=== PATIENT | female | born 1975 | race Caucasian/White ===

== ENCOUNTER 2023-09-20 09:30 | Emergency (ER) | payer OTHER, SELFPAY ==
[2023-09-20 09:33] VITALS: BP 166/98; PULSE 90; TEMP 37; O2SAT 98; BMI 54.8
--- NOTE | 2023-09-20 09:53 | ECG_ITS ---
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
--- NOTE | 2023-09-20 09:53 | ED.PSYCH1 ---
HPI - Psych General Chief Complaint: Psychiatric Symptoms Stated Complaint: SUICIDE IDEATIONS Time Seen by Provider: 09/20/23 09:52 Source: Reports patient Mode of arrival: ambulance Limitations: Reports no limitations History of Present Illness HPI Narrative: Patient presents to the emergency room from her workplace by EMS. Apparently September is a very bad month, she had a traumatic event when she was a young girl. There are workplace issues now that are stressing her additionally. She thought it about issues over the weekend and today at work voiced suicidal ideation. She has had a history of depression in the past but has never really taken treatment or even seeing a mental health professional counselor for that. She has some underlying medical issues but they are not relevant today. She does have history of hypertension and diabetes. She is asymptomatic at this time and has no shortness of breath or chest pain no swelling of her legs no abdominal pain. She did not [place] use of illicit drugs or marijuana. She does not use alcohol on a regular basis. She has not had any recently. She does not use tobacco products. At the time of my interview she was alone. Related Data Home Medications ?Medication ?Instructions ?Recorded ?Confirmed atorvastatin 10 mg tablet 10 mg PO DAILY 09/20/23 09/20/23 lisinopril 5 mg tablet 5 mg PO DAILY 09/20/23 09/20/23 metformin 500 mg tablet 500 mg PO DAILY 09/20/23 09/20/23 Exam Narrative Exam Narrative: Awake alert pleasant maintains good eye contact. She is not tearful, she is not agitated she is fully cooperative. I do not smell alcohol. HEENT shows overall good health mucous membranes are moist pink conjunctiva. Respiratory status is stable pulse oximetry normal and her lungs are clear. Heart sounds are normal with no arrhythmia and I hear no heart murmur. Her trunk torso and extremities are normal with no bruises self-inflicted wounds or other evidence of injury. Neurological examination cognition mentation and insight are all normal. Constitutional Vital Signs, click to edit/add: Last Vital Signs Temp 98.6 F 09/20/23 09:33 Pulse 90 09/20/23 09:33 Resp 20 09/20/23 09:33 BP 166/98 H 09/20/23 09:33 Pulse Ox 98 09/20/23 09:33 O2 Del Method Room Air 09/20/23 09:33 Course Vital Signs Vital signs: Vital Signs Temperature 98.6 F 09/20/23 09:33 Pulse Rate 90 09/20/23 09:33 Respiratory Rate 20 09/20/23 09:33 Blood Pressure 166/98 H 09/20/23 09:33 Pulse Oximetry 98 09/20/23 09:33 Oxygen Delivery Method Room Air 09/20/23 09:33 Temperature 98.6 F 09/20/23 09:33 Pulse Rate 90 09/20/23 09:33 Respiratory Rate 20 09/20/23 09:33 Blood Pressure 166/98 H 09/20/23 09:33 Pulse Oximetry 98 09/20/23 09:33 Oxygen Delivery Method Room Air 09/20/23 09:33 MDM - Psych MDM Narrative Medical decision making narrative: Routine screening medical testing was done. Alcohol and salicylates are negative. Drug screen is negative routine chemistries are normal. She has spoken with mental health counselor and I believe they have agreed to a safety plan and outpatient workup. Lab Data Labs: Lab Results 09/20/23 09/20/23 Range/Units 10:07 10:31 WBC 7.7 (4.0-11.0) 10^3/uL RBC 4.74 (4.20-5.40) 10^6/uL Hgb 12.4 (12.0-16.0) g/dL Hct 38.2 (36.0-48.0) % MCV 80.6 L (81.0-99.0) fL MCH 26.2 L (26.7-34.0) pg MCHC 32.5 (29.9-35.2) g/dL RDW 13.2 (11.0-15.0) % Plt Count 237 (150-450) 10^3/uL MPV 10.5 (9.5-13.5) fL Neut % (Auto) 73.2 (43.0-75.0) % Lymph % (Auto) 17.7 L (20.5-60.0) % Whiteside % (Auto) 7.1 (1.7-12.0) % Eos % (Auto) 1.0 (0.9-7.0) % Baso % (Auto) 0.5 (0.2-2.0) % Neut # (Auto) 5.6 (1.4-6.5) 10^3/uL Lymph # (Auto) 1.4 (1.2-3.8) 10^3/uL Whiteside # (Auto) 0.6 (0.3-0.8) 10^3/uL Eos # (Auto) 0.1 (0.0-0.7) 10^3/uL Baso # (Auto) 0.0 (0.0-0.1) 10^3/uL Abs Immat Gran (auto) 0.04 H (0.00-0.03) 10^3/uL Imm/Tot Granulo (auto) 0.5 (0.0-0.5) % Sodium 143 (136-145) mmol/L Potassium 3.8 (3.5-5.1) mmol/L Chloride 104 (98-107) mmol/L Carbon Dioxide 28.1 (21.0-32.0) mmol/L Anion Gap 14.7 BUN 12.0 (7.0-18.0) mg/dL Creatinine 0.78 (0.55-1.02) mg/dL Est GFR ( Amer) >60 (>=60) Est GFR (Non-Af Amer) >60 (>=60) BUN/Creatinine Ratio 15.4 Glucose 112 H (74-106) mg/dL Calcium 8.8 (8.5-10.1) mg/dL Total Bilirubin 0.4 (0.2-1.0) mg/dL AST 13 L (15-37) U/L ALT 24 (14-59) U/L Alkaline Phosphatase 85 (46-116) U/L Total Protein 6.8 (6.4-8.2) g/dL Albumin 3.4 (3.4-5.0) g/dL Globulin 3.4 g/dL Albumin/Globulin Ratio 1.0 Salicylates <2.8 (<=19.9) mg/dL Urine Opiates Screen Negative (NEGATIVE) Ur Buprenorphine Scrn Negative (NEGATIVE) Ur Oxycodone Screen Negative (NEGATIVE) Urine Methadone Screen Negative (NEGATIVE) Acetaminophen <10.0 L (10.0-30.0) ug/mL Ur Barbiturates Screen Negative (NEGATIVE) U Tricyclic Antidepress Negative (NEGATIVE) Ur Phencyclidine Scrn Negative (NEGATIVE) Ur Amphetamines Screen Negative (NEGATIVE) U Methamphetamines Scrn Negative (NEGATIVE) U Benzodiazepines Scrn Negative (NEGATIVE) Urine Cocaine Screen Negative (NEGATIVE) U Cannabinoids Screen Negative (NEGATIVE) Ethanol Quant <3 mg/dL Discharge Plan Discharge Stand Alone Forms: Portal Instructions Chief Complaint: Psychiatric Symptoms Clinical Impression: Depression Patient Disposition: Home, Self-Care Time of Disposition Decision: 12:28 Prescriptions / Home Meds: No Action atorvastatin 10 mg tablet 10 mg PO DAILY lisinopril 5 mg tablet 5 mg PO DAILY metformin 500 mg tablet 500 mg PO DAILY Print Language: Trinidadian Additional Instructions: Follow-up with mental health professional as advised and agreed upon Referrals: Physician,Non-Staff, [Primary Care Provider] - 1 week
[2023-09-20 10:17] LABS: Basophils Percent Auto 0.5 % (0.2-2.0); Eosinophils Absolute Auto 0.1 10^3/uL (0.0-0.7); Hematocrit 38.2 % (36.0-48.0); Hemoglobin 12.4 g/dL (12.0-16.0); Immature Granulocytes Abs Auto 0.04 10^3/uL (0.00-0.03); Immature Granulocytes Pct Auto 0.5 % (0.0-0.5); Lymphocytes Absolute Auto 1.4 10^3/uL (1.2-3.8); Lymphocytes Percent Auto 17.7 % (20.5-60.0); Mean Corpuscular HGB Conc 32.5 g/dL (29.9-35.2); Mean Corpuscular Hemoglobin 26.2 pg (26.7-34.0); Mean Corpuscular Volume 80.6 fL (81.0-99.0); Mean Platelet Volume 10.5 fL (9.5-13.5); Monocytes Absolute Auto 0.6 10^3/uL (0.3-0.8); Monocytes Percent Auto 7.1 % (1.7-12.0); Neutrophils Absolute Auto 5.6 10^3/uL (1.4-6.5); Neutrophils Percent Auto 73.2 % (43.0-75.0); Platelet Count 237 10^3/uL (150-450); Red Blood Count 4.74 10^6/uL (4.20-5.40); Red Cell Distribution Width 13.2 % (11.0-15.0); White Blood Count 7.7 10^3/uL (4.0-11.0)
[2023-09-20 10:36] LABS: Acetaminophen <10.0 ug/mL (10.0-30.0); Alanine Aminotransferase 24 U/L (14-59); Albumin Level 3.4 g/dL (3.4-5.0); Alkaline Phosphatase 85 U/L (46-116); Anion Gap 14.7; Aspartate Amino Transferase 13 U/L (15-37); BUN Creatinine Ratio 15.4; Bilirubin Total 0.4 mg/dL (0.2-1.0); Calcium 8.8 mg/dL (8.5-10.1); Carbon Dioxide 28.1 mmol/L (21.0-32.0); Chloride 104 mmol/L (98-107); Estimated GFR (African America >60 (>=60); Estimated GFR (Non-African Ame >60 (>=60); Ethanol <3 mg/dL; Globulin 3.4 g/dL; Glucose 112 mg/dL (74-106); Potassium 3.8 mmol/L (3.5-5.1); Salicylate <2.8 mg/dL (<=19.9); Sodium 143 mmol/L (136-145); Total Protein 6.8 g/dL (6.4-8.2)
[2023-09-20 11:03] LABS: Amphetamine Screen Urine NEGATIVE (NEGATIVE); Barbiturates Screen Urine NEGATIVE (NEGATIVE); Benzodiazepines Screen Urine NEGATIVE (NEGATIVE); Buprenorphine Screen Urine NEGATIVE (NEGATIVE); Cannabinoid Screen Urine NEGATIVE (NEGATIVE); Cocaine Screen Urine NEGATIVE (NEGATIVE); Methadone Screen Urine NEGATIVE (NEGATIVE); Methamphetamines Screen Urine NEGATIVE (NEGATIVE); Opiate Screen Urine NEGATIVE (NEGATIVE); Oxycodone Screen Urine NEGATIVE (NEGATIVE); Phencyclidine Screen Urine NEGATIVE (NEGATIVE); Tricyclic Antidepressant Urine NEGATIVE (NEGATIVE)
[2023-09-20 13:30] VITALS: BP 146/88; PULSE 88; O2SAT 98
== END 2023-09-20 13:31 | disposition home or self-care (01) ==
PROVIDERS: Emergency Provider Emergency Medicine Emergency Medical Services
DX: F32.A Depression, unspecified (principal); I10 Essential (primary) hypertension; E11.9 Type 2 diabetes mellitus without complications; Z79.84 Long term (current) use of oral hypoglycemic drugs
CPT/HCPCS: 36415; 80053; 80179; 80307; 80320; 80329; 85025; 93005; 99284

== ENCOUNTER 2024-02-08 13:24 | Observation (INO) | payer OTHER, SELFPAY ==
[2024-02-08] VITALS (8 sets, daily range): BP systolic 93–157; BP diastolic 63–93; PULSE 78–133; TEMP 36.4–39.4; O2SAT 91–96; BMI 53.3; BMI 52.1
--- NOTE | 2024-02-08 13:37 | CT_ITS ---
[address] [address] Patient Name: SOCORRO MONTOYA MRN: [id number] date: 1975 Sex: F Assigned Patient Location: ER Current Patient Location: ER Accession/Order Number: [id number] Exam Date: 02/08/2024 14:14 Report Date: 02/08/2024 14:38 At the request of: PUSHPA ELENA Procedure: CT abdomen pelvis w con EXAMINATION: CT abdomen pelvis w con HISTORY: Vomiting/diarrhea COMPARISON: No relevant comparison available. TECHNIQUE: CT images were created with IV contrast. Axial, Coronal, and Sagittal images. Dose reduction techniques were achieved by using automated exposure control and/or adjustment of mA and/or kV according to patient size and/or use of iterative reconstruction technique. FINDINGS: LUNG BASES: No visible pulmonary or pleural disease. LIVER: No enlargement, atrophy, abnormal density, or significant focal lesion. BILIARY: No visible dilatation or calcification. PANCREAS: No lesion, fluid collection, ductal dilatation, or atrophy. SPLEEN: No enlargement or focal lesion. ADRENALS: No mass or enlargement. KIDNEYS: Normal right. Asymmetric enlargement of the left kidney with moderate perinephric stranding. Mild left hydroureter with no focal obstruction BOWEL/MESENTERY: No visible mass, obstruction, or bowel wall thickening. Normal appendix AORTA/VASCULAR: No aneurysm or dissection. RETROPERITONEUM: No mass or adenopathy. LYMPH NODES: No adenopathy. URINARY BLADDER: No visible focal wall thickening, lesion, or calculus. PELVIC ORGANS: No visible mass. Pelvic organs appropriate for patient age. ABDOMINAL WALL: No mass or hernia. BONES: No bony lesion or fracture. OTHER: Negative. CT/CT abdomen pelvis w con IMPRESSION: Inflammatory changes of the left kidney and ureter, consider pyelonephritis. The differential diagnosis would include sequela of a passed stone Electronically authenticated by: LISA ANDRADE Date: 02/08/2024 14:38
--- NOTE | 2024-02-08 13:37 | XR_ITS ---
The [address] [address] Patient Name: SOCORRO MONTOYA MRN: [id number] date: 1975 Sex: F Assigned Patient Location: ER Current Patient Location: ER Accession/Order Number: [id number] Exam Date: 02/08/2024 14:14 Report Date: 02/08/2024 14:34 At the request of: PUSHPA ELENA Procedure: XR chest 1V EXAMINATION: XR chest 1V HISTORY: Fever COMPARISON: No relevant comparison available. TECHNIQUE: AP portable FINDINGS: LUNGS: No significant pulmonary parenchymal abnormalities. VASCULATURE: No increased pulmonary vasculature. PLEURA: No pneumothorax, effusion, or pleural thickening. Elevated right hemidiaphragm CARDIAC: No cardiomegaly or cardiac silhouette abnormality. MEDIASTINUM: No visible mass or adenopathy. BONES: No fracture or visible bone lesion. OTHER: Negative. XR/XR chest 1V IMPRESSION: No acute cardiopulmonary process Electronically authenticated by: LISA ANDRADE Date: 02/08/2024 14:34
--- NOTE | 2024-02-08 13:42 | ED.GENADUL1 ---
HPI HPI - General Adult General Chief complaint: Nausea/Vomiting/Diarrhea Stated complaint: GENERAL WEAKNESS/ VOMITTING Time Seen by Provider: 02/08/24 13:32 Source: patient Mode of arrival: walk-in Limitations: no limitations History of Present Illness HPI narrative: Patient is a 48-year-old female who presents to the emergency department for 3-day history of vomiting, urinary frequency. She denies flank or back pain. She has no significant abdominal pain at this time although she states she did have left-sided abdominal pain with vomiting earlier. She has had a sore throat which has now resolved. She is noted to be febrile and tachycardic at initial interview. She states when she vomits she does have some mucus but has not had any significant nasal congestion or cough. No sick contacts in the home. No medications taken prior to arrival. She has no concern for . She has not had any diarrhea. Related Data Home Medications ?Medication ?Instructions ?Recorded ?Confirmed atorvastatin 10 mg tablet 10 mg PO DAILY 09/20/23 02/08/24 lisinopril 5 mg tablet 5 mg PO DAILY 09/20/23 02/08/24 metformin 500 mg tablet 500 mg PO DAILY 09/20/23 02/08/24 buspirone 15 mg tablet 15 mg PO BID 02/08/24 02/08/24 Allergies Allergy/AdvReac Type Severity Reaction Status Date / Time No Known Drug Allergies Allergy Verified 02/08/24 13:29 Opioid HPI Opioid Management Most Recent Opioid Data: Last JUN Pain Assessment 02/08/24 15:31 Ur Phencyclidine Scrn Negative (NEGATIVE) 09/20/23 10:31 09/20/23 Review of Systems ROS Constitutional Reports: fever and chills Ears, nose, mouth, and throat Reports: throat pain; Denies: nasal congestion Cardiovascular Denies: chest pain Respiratory Denies: shortness of breath or cough Gastrointestinal Reports: abdominal pain, nausea and vomiting; Denies: diarrhea Genitourinary Reports: painful urination, urinary frequency and urinary urgency Musculoskeletal Denies: back pain or neck pain Neurological Denies: headache, numbness in extremities or weakness in extremities Hematologic/Lymphatic Denies: easy bruising or easy bleeding PFSH PFSH Social History Little interest or pleasure in doing things: not at all Feeling down, depressed, or hopeless: not at all Exam Narrative Exam Narrative: Gen.: Awake, alert, in no distress Head: Normocephalic, atraumatic ENT: Moist mucous membranes Respiratory: No respiratory distress, lungs clear bilaterally Cardio: Regular rate and rhythm, tachycardic Gastrointestinal: Abdomen is soft, nondistended and nontender to palpation Back: No CVA tenderness Extremities: Moves extremities equally, no injuries noted Psych: Normal mood and affect Neuro: No focal neuro deficit Skin: Warm, dry, intact Constitutional Vital Signs, click to edit/add: Last Vital Signs Temp 102.4 F H 02/08/24 15:04 Pulse 109 H 02/08/24 15:04 Resp 18 02/08/24 15:04 BP 139/80 02/08/24 15:04 Pulse Ox 95 02/08/24 15:04 O2 Del Method Room Air 02/08/24 15:04 Course Vital Signs Vital signs: Vital Signs Temperature 103.0 F H 02/08/24 13:29 Pulse Rate 133 H 02/08/24 13:29 Respiratory Rate 18 02/08/24 13:29 Blood Pressure 157/93 H 02/08/24 13:29 Pulse Oximetry 96 02/08/24 13:29 Oxygen Delivery Method Room Air 02/08/24 13:29 Temperature 102.4 F H 02/08/24 15:04 Pulse Rate 109 H 02/08/24 15:04 Respiratory Rate 18 02/08/24 15:04 Blood Pressure 139/80 02/08/24 15:04 Pulse Oximetry 95 02/08/24 15:04 Oxygen Delivery Method Room Air 02/08/24 15:04 Medical Decision Making [facility] Narrative Medical decision making narrative: Patient was initially medicated with IV fluids, Tylenol, Zofran. She had no further episodes of emesis after the Zofran was administered. Her temperature did improve some with the Tylenol. Chest x-ray is unremarkable, full septic workup was ordered. She is negative for COVID, influenza and strep. Blood cultures are pending. Patient with minimal leukocytosis and bandemia, otherwise unremarkable labs and normal lactic acid. She was given additional ibuprofen for fever after her CT resulted showing possible left pyelonephritis versus recently passed kidney stone. Patient with abdomen soft and benign in the ER. She was treated with IV Rocephin for UTI and pyelonephritis. Patient was reevaluated, given her criteria for sepsis and pyelonephritis we will admit for IV fluids and antibiotics. Patient is stable at this time of admission to hospitalist service. SUPERVISED APC VISIT, PHYSICIAN ATTESTATION: Based on the medical record the care appears appropriate. ? Medical Records Medical records reviewed: Yes I reviewed the patient's medical records Lab Data Lab results reviewed: Yes I reviewed the patient's lab results Labs: Lab Results 02/08/24 02/08/24 02/08/24 Range/Units 13:35 13:46 13:56 WBC 11.6 H (4.0-11.0) 10^3/uL RBC 4.96 (4.20-5.40) 10^6/uL Hgb 13.4 (12.0-16.0) g/dL Hct 40.1 (36.0-48.0) % MCV 80.8 L (81.0-99.0) fL MCH 27.0 (26.7-34.0) pg MCHC 33.4 (29.9-35.2) g/dL RDW 12.8 (11.0-15.0) % Plt Count 162 (150-450) 10^3/uL MPV 10.9 (9.5-13.5) fL Seg Neuts % (Manual) 84.0 H (43.0-75.0) Band Neutrophils % 2.0 (0-5) % Lymphocytes % (Manual) 2.0 L (20.5-60.0) % Monocytes % (Manual) 12.0 (1.7-12.0) % Eosinophils % (Manual) 0.0 L (0.9-7.0) % Basophils % (Manual) 0.0 L (0.2-2.0) % Neutrophils # (Manual) 9.74 H (1.4-6.5) 10^3/uL Band Neutrophils # 0.2 (0.0-0.3) 10^3/uL Lymphocytes # (Manual) 0.23 L (1.20-3.80) 10^3/uL Monocytes # (Manual) 1.39 H (0.30-0.80) 10^3/uL Eosinophils # (Manual) 0.00 (0.00-0.70) 10^3/uL Basophils # (Manual) 0.00 (0.00-0.10) 10^3/uL VBG pH 7.502 H (7.330-7.430) VBG pCO2 30.1 L (40.0-52.0) mmHg Sodium 137 (136-145) mmol/L Potassium 3.7 (3.5-5.1) mmol/L Chloride 100 (98-107) mmol/L Carbon Dioxide 23.1 (21.0-32.0) mmol/L Anion Gap 17.6 BUN 9.0 (7.0-18.0) mg/dL Creatinine 1.07 H (0.55-1.02) mg/dL Est GFR ( Amer) >60 (>=60 mL/min/1.73m^2) Est GFR (Non-Af Amer) 55 L (>=60 mL/min/1.73m^2) BUN/Creatinine Ratio 8.4 Glucose 212 H (74-106) mg/dL Lactate 1.9 (0.4-2.0) mmol/L Calcium 9.1 (8.5-10.1) mg/dL Total Bilirubin 1.6 H (0.2-1.0) mg/dL AST 27 (15-37) U/L ALT 30 (14-59) U/L Alkaline Phosphatase 98 (46-116) U/L Total Protein 7.1 (6.4-8.2) g/dL Albumin 3.1 L (3.4-5.0) g/dL Globulin 4.0 g/dL Albumin/Globulin Ratio 0.8 Lipase 16.0 (16.0-77.0) U/L Serum HCG, Qual Negative (NEGATIVE) Urine Color (YELLOW) Urine Clarity (CLEAR) Urine pH (5.0-9.0) Ur Specific [place] (1.005-1.025) Urine Protein (NEG/TRACE) mg/dL Urine Glucose (UA) (NEGATIVE) mg/dL Urine Ketones (NEGATIVE) mg/dL Urine Occult Blood (NEGATIVE) Urine Nitrite (NEGATIVE) Urine Bilirubin (NEGATIVE) Urine Urobilinogen (0.2-1.0) EU/dL Ur Leukocyte Esterase (NEGATIVE) Urine RBC (0-2) #/HPF Urine WBC (NONE SEEN) #/HPF Ur Squamous Epith Cells (NONE/RARE) #/LPF Ur Transition Epith Cell (NONE SEEN) #/LPF Urine Crystals (None Seen) #/HPF Urine Bacteria (NONE SEEN) #/HPF Urine Casts (NONE SEEN) #/LPF Urine Mucus (NONE SEEN) Ur Culture Indicated? Influenza Type A Ag Negative Influenza Type B Ag Negative SARS-CoV-2 Ag (CV2AG) Negative (NEGATIVE) Streptococcus Screen Negative 02/08/24 Range/Units 14:50 WBC (4.0-11.0) 10^3/uL RBC (4.20-5.40) 10^6/uL Hgb (12.0-16.0) g/dL Hct (36.0-48.0) % MCV (81.0-99.0) fL MCH (26.7-34.0) pg MCHC (29.9-35.2) g/dL RDW (11.0-15.0) % Plt Count (150-450) 10^3/uL MPV (9.5-13.5) fL Seg Neuts % (Manual) (43.0-75.0) Band Neutrophils % (0-5) % Lymphocytes % (Manual) (20.5-60.0) % Monocytes % (Manual) (1.7-12.0) % Eosinophils % (Manual) (0.9-7.0) % Basophils % (Manual) (0.2-2.0) % Neutrophils # (Manual) (1.4-6.5) 10^3/uL Band Neutrophils # (0.0-0.3) 10^3/uL Lymphocytes # (Manual) (1.20-3.80) 10^3/uL Monocytes # (Manual) (0.30-0.80) 10^3/uL Eosinophils # (Manual) (0.00-0.70) 10^3/uL Basophils # (Manual) (0.00-0.10) 10^3/uL VBG pH (7.330-7.430) VBG pCO2 (40.0-52.0) mmHg Sodium (136-145) mmol/L Potassium (3.5-5.1) mmol/L Chloride (98-107) mmol/L Carbon Dioxide (21.0-32.0) mmol/L Anion Gap BUN (7.0-18.0) mg/dL Creatinine (0.55-1.02) mg/dL Est GFR ( Amer) (>=60 mL/min/1.73m^2) Est GFR (Non-Af Amer) (>=60 mL/min/1.73m^2) BUN/Creatinine Ratio Glucose (74-106) mg/dL Lactate (0.4-2.0) mmol/L Calcium (8.5-10.1) mg/dL Total Bilirubin (0.2-1.0) mg/dL AST (15-37) U/L ALT (14-59) U/L Alkaline Phosphatase (46-116) U/L Total Protein (6.4-8.2) g/dL Albumin (3.4-5.0) g/dL Globulin g/dL Albumin/Globulin Ratio Lipase (16.0-77.0) U/L Serum HCG, Qual (NEGATIVE) Urine Color Lt. yellow (YELLOW) Urine Clarity Clear (CLEAR) Urine pH 7.0 (5.0-9.0) Ur Specific [place] <=1.005 A (1.005-1.025) Urine Protein 100 A (NEG/TRACE) mg/dL Urine Glucose (UA) Negative (NEGATIVE) mg/dL Urine Ketones Negative (NEGATIVE) mg/dL Urine Occult Blood Large A (NEGATIVE) Urine Nitrite Negative (NEGATIVE) Urine Bilirubin Negative (NEGATIVE) Urine Urobilinogen 1.0 (0.2-1.0) EU/dL Ur Leukocyte Esterase Trace A (NEGATIVE) Urine RBC 5-10 A (0-2) #/HPF Urine WBC 2-5 A (NONE SEEN) #/HPF Ur Squamous Epith Cells Few A (NONE/RARE) #/LPF Ur Transition Epith Cell Rare A (NONE SEEN) #/LPF Urine Crystals None seen (None Seen) #/HPF Urine Bacteria Moderate A (NONE SEEN) #/HPF Urine Casts None seen (NONE SEEN) #/LPF Urine Mucus Trace A (NONE SEEN) Ur Culture Indicated? Yes Influenza Type A Ag Influenza Type B Ag SARS-CoV-2 Ag (CV2AG) (NEGATIVE) Streptococcus Screen Imaging Data CT scan - abdomen: Attestation: I have reviewed the pertinent imaging results. Radiologist's impression: ITS Impressions Abdomen/Pelvis CT 02/08/24 13:37 IMPRESSION: Inflammatory changes of the left kidney and ureter, consider pyelonephritis. The differential diagnosis would include sequela of a passed stone Electronically authenticated by: LISA ANDRADE Date: 02/08/2024 14:38 Chest X-Ray 02/08/24 13:37 IMPRESSION: No acute cardiopulmonary process Electronically authenticated by: LISA ANDRADE Date: 02/08/2024 14:34 Discharge Plan Discharge Chief Complaint: Nausea/Vomiting/Diarrhea Clinical Impression: Pyelonephritis, Sepsis, Fever, Nausea & vomiting Patient Disposition: Admitted as Observation Time of Disposition Decision: 15:54 Prescriptions / Home Meds: No Action atorvastatin 10 mg tablet 10 mg PO DAILY lisinopril 5 mg tablet 5 mg PO DAILY metformin 500 mg tablet 500 mg PO DAILY buspirone 15 mg tablet 15 mg PO BID Print Language: Maltese Referrals: Physician,Non-Staff, [Physician] - 1 week
[2024-02-08] MEDS: 0.9 % SODIUM CHLORIDE 1,000 ML 999 ML IV (13:57)
[2024-02-08] MEDS: ACETAMINOPHEN 500 MG TABLET 1000 MG PO (13:58)
[2024-02-08] MEDS: ONDANSETRON PF 4 MG/2 ML VIAL IV (13:59)
[2024-02-08 14:05] LABS: Hematocrit 40.1 % (36.0-48.0); Hemoglobin 13.4 g/dL (12.0-16.0); Mean Corpuscular HGB Conc 33.4 g/dL (29.9-35.2); Mean Corpuscular Volume 80.8 fL (81.0-99.0); Mean Platelet Volume 10.9 fL (9.5-13.5); Platelet Count 162 10^3/uL (150-450); Red Blood Count 4.96 10^6/uL (4.20-5.40); Red Cell Distribution Width 12.8 % (11.0-15.0); White Blood Count 11.6 10^3/uL (4.0-11.0)
--- NOTE | 2024-02-08 14:11 | PC.NURSE ---
Pt reports frequency of urination for several days along with a fever. Pt states she can not get to the bathroom in time and urinates large amounts. Pt states she is always thirsty. Pt denies being diabetic but states she is prediabetic and gets tested 2 x per year
[2024-02-08 14:13] LABS: PCO2 VBG 30.1 mmHg (40.0-52.0); pH VBG 7.502 (7.330-7.430)
[2024-02-08 14:19] LABS: HCG Qualitative NEGATIVE (NEGATIVE); Internal Control Within Normal Limits
[2024-02-08 14:20] LABS: Influenza Virus A Antigen Negative; Influenza Virus B Antigen Negative; Internal Control Within Normal Limits
[2024-02-08 14:20] LABS: Internal Control Within Normal Limits; Strep A Antigen Screen Negative
[2024-02-08 14:20] LABS: Alanine Aminotransferase 30 U/L (14-59); Albumin Globulin Ratio 0.8; Albumin Level 3.1 g/dL (3.4-5.0); Alkaline Phosphatase 98 U/L (46-116); Anion Gap 17.6; Aspartate Amino Transferase 27 U/L (15-37); BUN Creatinine Ratio 8.4; Bilirubin Total 1.6 mg/dL (0.2-1.0); Calcium 9.1 mg/dL (8.5-10.1); Carbon Dioxide 23.1 mmol/L (21.0-32.0); Chloride 100 mmol/L (98-107); Estimated GFR (African America >60 (>=60 mL/min/1.73m^2); Estimated GFR (Non-African Ame 55 (>=60 mL/min/1.73m^2); Glucose 212 mg/dL (74-106); Potassium 3.7 mmol/L (3.5-5.1); Sodium 137 mmol/L (136-145); Total Protein 7.1 g/dL (6.4-8.2)
[2024-02-08 14:21] LABS: Internal Control Within Normal Limits; SARS-CoV-2 Ag NEGATIVE (NEGATIVE)
[2024-02-08 14:22] LABS: Lactate/Lactic Acid 1.9 mmol/L (0.4-2.0)
[2024-02-08 14:31] LABS: Band Neutrophils Absolute 0.2 10^3/uL (0.0-0.3); Lymphocytes Absolute Manual 0.23 10^3/uL (1.20-3.80); Monocytes Absolute Manual 1.39 10^3/uL (0.30-0.80); Segmented Neut Absolute Manual 9.74 10^3/uL (1.4-6.5)
[2024-02-08 15:01] LABS: Bilirubin Urine NEGATIVE (NEGATIVE); Blood Urine LARGE (NEGATIVE); Clarity Urine CLEAR (CLEAR); Color Urine LT. YELLOW (YELLOW); Glucose Urine UA NEGATIVE (NEGATIVE); Ketones Urine NEGATIVE (NEGATIVE); Leukocyte Esterase Urine TRACE (NEGATIVE); Nitrite Urine NEGATIVE (NEGATIVE); Protein Urine 100 mg/dL (NEG/TRACE); Specific Gravity Urine <=1.005 (1.005-1.025)
[2024-02-08 15:07] LABS: Urine Microscopic Indicated YES
[2024-02-08 15:11] LABS: Bacteria Urine MODERATE #/HPF (NONE SEEN); Cast Seen? NONE SEEN #/LPF (NONE SEEN); Crystals Seen? None Seen #/HPF (None Seen); Mucus Urine TRACE (NONE SEEN); Squamous Epithelial Cell Urine FEW #/LPF (NONE/RARE); Transitional Epi Cells Urine RARE #/LPF (NONE SEEN); Urine Culture Indicated YES
[2024-02-08] MEDS: IBUPROFEN 400 MG TABLET 800 MG PO (15:31)
[2024-02-08] MEDS: CEFTRIAXONE 2,000 MG in 0.9 % SODIUM CHLORIDE 100 ML 200 MG IV (15:32)
--- OUTSIDE RECORDS SUMMARY | 2024-02-08 16:47 | XMS_ITS | CCD ---
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 THROMBOSIS: 2 - 3 C) Active venous thrombosis, pulmonary embolism and prevention of recurrent venous thrombosis: 2 - 3 D) Prevention of arterial thromboembolism including patients with mechanical heart valves: 3 - 4.5 Performed By: #### B TRENT, HEPATIC #### [facility] [address] Ketones Auto test strip (U) [Mass/Vol]Ordered By: Wesley Loza on 01-27-2023 Ketones (U) [Mass/Vol] Negative Negative [facility] - UrinalysisOrder ed By: Wesley Loza on 01-27-2023 Hyaline casts LM Ql (Urine sed) None seen [LPF] 0-8 [facility] Leukocytes [#/volume] correc kathleen for nucleated erythrocytes in Blood by Automated counOrdered By: Wesley Loza on 01-27-2023 WBC corrected for nucl RBC Auto (Bld) [#/Vol] 8.6 10*3/uL 3.8-11.6 [facility] Leukocytes [#/volume] in Blo od by Automated countOrdered By: Wesley Loza on 01-27-2023 WBC (Bld) [#/Vol] 8.6 10*3/uL Normal 3.8-11.6 [facility] Comment on above: Performed By: #### B TRENT, HEPATIC #### [facility] [address] Lymphocytes [#/volume] in Bl ood by Automated countOrdered By: Wesley Loza on 01-27-2023 Lymphocytes (Bld) [#/Vol] 1.9 10*3/uL Normal 1.00-4.8 [facility] Comment on above: Performed By: #### B MP, HEPATIC #### [address] Lymphocytes/100 leukocytes i n Blood by Automated countOrdered By: Wesley Loza on 01-27-2023 Lymphocytes/100 WBC (Bld) 22.3 % Normal . [facility] Comment on above: Performed By: #### B MP, HEPATIC #### [address] MCH [Entitic mass] by Automa kathleen countOrdered By: Wesley Loza on 01-27-2023 MCH (RBC) [Entitic mass] 26.3 pg Normal 24.7-34.3 [facility] Comment on above: Performed By: #### B MP, HEPATIC #### [address] MCHC Auto (RBC) [Mass/Vol]Or dered By: Wesley Loza on 01-27-2023 MCHC (RBC) [Mass/Vol] 33.4 g/dL 32.0-35.0 [facility] MCV [Entitic volume] by Auto mated countOrdered By: Wesley Loza on 01-27-2023 MCV (RBC) [Entitic vol] 78.6 fL Low 80-100 [facility] Comment on above: Performed By: #### B TRENT, HEPATIC #### [address] Monocyte distribution width [Entitic volume] in Blood by AutomatedOrdered By: Wesley Loza on 01-27-2023 Monocyte distribution width Auto (Bld) [Entitic vol] 20.25 % 0.00-20.00 [facility] Comment on above: For adults in ED, MD W > 20.0 may be associated with a higher risk of sepsis during the first 12 hrs of hospital admission Neutrophils [#/volume] in Bl ood by Automated countOrdered By: Wesley Loza on 01-27-2023 Neutrophils (Bld) [#/Vol] 5.7 10*3/uL Normal 1.8-7.7 [facility] Comment on above: Performed By: #### B MP, HEPATIC #### [facility] [address] [place] [address] Nitrite Test strip Ql (U)Ord ered By: Wesley Loza on 01-27-2023 Nitrite Ql (U) Negative Negative [facility] No Panel InformationOrdered By: Wseley Loza on 01-27-2023 Estimated GFR (CKD-EPI) > 60.0 mL/Min [facility] Creatinine Clearance (Chem 160.20 [facility] Nucleated erythrocytes [Pres ence] in Blood by Automated countOrdered By: Wesley Loza on 01-27-2023 Nucleated RBC Auto Ql (Bld) 0.1 /100{WBC} 0-0.5 [facility] Partial Thromboplastin Timeo n 01-27-2023 aPTT Coag (Bld) [Time] 26.3 s Normal 25.1-36.5 [facility] Comment on above: Result Comment: A he matocrit value greater than 55% may lead to inaccurate results in coagulation testing. Patients having hematocrit values >55% require a special collection tube for coagulation studies. Please contact the laboratory at [phone] for redraw instructions. PERFORMED BY: [place] [address] PATHOLOGIST TOPOGRAPHICAL FIELD ASSISTANT MARCUS GE M.D. Performed By: #### B TRENT, HEPATIC #### [facility] [address] [place] [address] [place] Platelet mean volume [Entiti c volume] in Blood by Automated countOrdered By: Wesley Loza on 01-27-2023 Platelet mean volume (Bld) [Entitic vol] 8.7 fL Normal 6.3-10.7 [facility] Comment on above: Performed By: #### B MP, HEPATIC #### [facility] [address] [place] [address] [place] Platelets [#/volume] in Bloo d by Automated countOrdered By: Wesley Loza on 01-27-2023 Platelets (Bld) [#/Vol] 212 10*3/uL Normal 150-450 [facility] Comment on above: Performed By: #### B MP, HEPATIC #### [facility] [address] [place] [address] [facility] Potassium [Moles/volume] in Serum or PlasmaOrdered By: Wesley Loza on 01-27-2023 Potassium [Moles/Vol] See comment 3.5-5.1 [facility] Comment on above: Specimen hemolyzed, redraw requested Protein Auto test strip (U) [Mass/Vol]Ordered By: Wesley Loza on 01-27-2023 Protein (U) [Mass/Vol] Negative Negative [facility] Protein [Mass/volume] in Ser um or PlasmaOrdered By: Wesley Loza on 01-27-2023 Protein [Mass/Vol] 6.8 g/dL Normal 6.4-8.9 [facility] Comment on above: Performed By: #### B MP, HEPATIC #### [facility] [address] [place] [address] [facility] Prothrombin time (PT)Ordered By: Wesley Loza on 01-27-2023 PT Coag (PPP) [Time] 12.4 s Normal 9.0-12.9 [facility] Comment on above: A hematocrit value g reater than 55% may lead to inaccurate results in coagulation testing. Patients having hematocrit values >55% require a special collection tube for coagulation studies. Please contact the laboratory at [phone] for redraw instructions. Result Comment: A he matocrit value greater than 55% may lead to inaccurate results in coagulation testing. Patients having hematocrit values >55% require a special collection tube for coagulation studies. Please contact the laboratory at [phone] for redraw instructions. Performed By: #### B MP, HEPATIC #### [facility] [address] [place] [address] [place] Redraw Potassiumon 3 Redraw Potassium Normal 3.5-5.1 [facility] Comment on above: Order Comment: HOLLI YUEN NOTIFIED. DC Result Comment: Spec imen hemolyzed, redraw requested PERFORMED BY: [facility] [address] [place] [address] PATHOLOGIST TOPOGRAPHICAL FIELD ASSISTANT MARCUS GE M.D. Performed By: #### R RENETTA K #### [address] Serum globulin measurement b y calculation (mass/volume)Ordered By: Wesley Loza on 01-27-2023 Globulin (S) [Mass/Vol] 2.6 g/dL [facility] Comment on above: Performed By: #### B MP, HEPATIC #### [address] Serum or plasma albumin/glob ulin mass ratioOrdered By: Wesley Loza on 01-27-2023 Albumin/Globulin [Mass ratio] 1.6 {ratio} [facility] Comment on above: Performed By: #### B TRENT, HEPATIC #### [address] Serum or plasma anion gap de terminationOrdered By: Wesley Loza on 01-27-2023 Anion gap [Moles/Vol] TNP [facility] Comment on above: Test not performed Serum or plasma non-glucuron idated bilirubin measurement (mass/volume)Ordered By: Wesley Loza on 01-27-2023 Bilirubin.indirect [Mass/Vol] 0.6 mg/dL [facility] Sodium [Moles/volume] in Ser um or PlasmaOrdered By: Wesley Loza on 01-27-2023 Sodium [Moles/Vol] 138 mmol/L Normal 136-145 [facility] Comment on above: Performed By: #### B TRENT, HEPATIC #### [address] Specific gravity Auto test s trip (U) [Rel density]Ordered By: Wesley Loza on 01-27-2023 Specific gravity (U) [Rel density] 1.005 1.001-1.030 [facility] Squamous epithelial cells de tection in urine sediment by light microscopyOrdered By: Wesley Loza on 01-27-2023 Epithelial cells.squamous LM Ql (Urine sed) None seen [HPF] 0-2 [facility] Troponin I High Sensitivityo n 01-27-2023 Troponin I High Sensitivity 2.8 pg/mL Normal 0.0-15.0 [facility] Comment on above: Result Comment: PERF ORMED BY: [place] [address] PATHOLOGIST TOPOGRAPHICAL FIELD ASSISTANT MARCUS GE M.D. Performed By: #### H S TROP #### [facility] [address] [place] [address] Troponin I High Sensitivity 8.9 pg/mL Normal 0.0-15.0 [facility] Comment on above: Result Comment: PERF ORMED BY: [place] [address] PATHOLOGIST TOPOGRAPHICAL FIELD ASSISTANT MARCUS GE M.D. Performed By: #### B MP, HEPATIC #### [place] [id number] [facility] Troponin I.cardiac [Mass/vol ume] in Serum or Plasma by Detection limit <= 0.01 ng/Ordered By: Wesley Loza on 01-27-2023 Troponin I.cardiac DL <= 0.01 ng/mL [Mass/Vol] 2.8 pg/mL 0.0-15.0 [facility] Urea nitrogen [Mass/volume] in Serum or PlasmaOrdered By: Wesley Loza on 01-27-2023 Urea nitrogen [Mass/Vol] 12 mg/dL Normal 7-25 [facility] Comment on above: Performed By: #### B MP, HEPATIC #### [facility] [address] [place] [address] Urine bacteria detection by automated methodOrdered By: Wesley Loza on 01-27-2023 Bacteria Auto Ql (U) None seen None Seen [facility] Urine clarity by refractomet ry automatedOrdered By: Wesley Loza on 01-27-2023 Clarity Refractometry automated (U) Clear Clear [facility] Urine glucose measurement by automated test strip (mass/volume)Ordered By: Wesley Loza on 01-27-2023 Glucose Auto test strip (U) [Mass/Vol] Normal mg/dL Normal [facility] Urine hemoglobin detection b y automated test stripOrdered By: Wesley Loza on 01-27-2023 Hemoglobin Auto test strip Ql (U) Negative Negative [facility] Urine leukocyte esterase det ection by automated test stripOrdered By: Wesley Loza on 01-27-2023 Leukocyte esterase Auto test strip Ql (U) 1+ Negative [facility] Urine pH measurement by auto mated test stripOrdered By: Wesley Loza on 01-27-2023 pH (U) 6.0 [pH] Normal 5.0-9.0 [facility] Comment on above: Order Comment: Name Collection Type:: Clean-Voided Midstream Performed By: #### U HCG, ADDONUAPLUS #### [address] Urobilinogen Auto test strip (U) [Mass/Vol]Ordered By: Wesley Loza on 01-27-2023 Urobilinogen (U) [Mass/Vol] Normal mg/dL Normal [facility] XR chest 1V portableon 01-27 XR chest 1V portable [facility] Main [place] [address] [place] [address] XRay Report Signed Patient: George Montoya MR#: [id number] 84 : 1975 Acct:[id number] Age/Sex: 47 / F ADM Date: 01/27/23 Loc: ER Room: Type: [facility] ER Attending Dr: Copies to: Wesley Loza DO Ordering Provider: Wesley Loza DO Date of Service: 01/27/23 XR/XR chest 1V portable: Chest Pain PORTABLE AP ERECT CHEST 2024 hours CLINICAL HISTORY: Chest pressure COMPARISON: None There is shallow inspiration. The heart is within normal limits. There is no vascular congestion. The lungs, as visualized, are clear. There is no effusion or pneumothorax. The osseous structures are intact. XR/XR chest 1V portable IMPRESSION: NO ACUTE FINDINGS Impression dictated by: Jaja Michaels M.D.01/27/2023 8:41 PM Dictation Location: [place] [address] Transcribed By: [facility] 01/27/232040 Dictated By: Jaja Michaels MD 01/27/232040 Signed By: 01/27/232040 [address] [facility] Cholesterol [Mass/volume] in Serum or PlasmaOrdered By: Irene Mccarty on 06-06-2022 Cholesterol [Mass/Vol] 155 mg/dL 140-200 [facility] Comment on above: Chol less than 200 m g/dl low riskChol 201-239 mg/dl borderline riskChol 240 mg/dl and greater high risk Cholesterol in LDL Calc [Mas s/Vol]Ordered By: Irene Mccarty on 06-06-2022 Cholesterol in LDL [Mass/Vol] 91 mg/dL 0-100 [facility] Comment on above: LDL ATP III CLASSIFI CATIONLDL less than 100 mg/dL OptimalLDL 100-129 mg/dL Near or above optimalLDL 130-159 mg/dL Borderline highLDL 160-189 mg/dL HighLDL greater than 189 mg/dL Very high Cholesterol in VLDL Calc [Ma ss/Vol]Ordered By: Irene Mccarty on 06-06-2022 Cholesterol in VLDL [Mass/Vol] 13 mg/dL [facility] Serum or plasma high density lipoprotein (HDL) cholesterol measurementOrdered By: Irene Mccarty on 06-06-2022 Cholesterol in HDL [Mass/Vol] 50 mg/dL 35-85 [facility] Comment on above: HDL CHOL ATP-III CLA SSIFICATION Cardiovascular RiskHDL > or equal to 60 mg/dL LOWHDL < 40 mg/dL HIGH Serum or plasma total choles terol/high density lipoprotein (HDL) cholesterol mass ratOrdered By: Irene Mccarty on 06-06-2022 Cholesterol.total/Chol esterol in HDL [Mass ratio] 3.1 {ratio} <5.0 [facility] Triglyceride [Mass/volume] i n Serum or PlasmaOrdered By: Irene Mccarty on 06-06-2022 Triglyceride [Mass/Vol] 68 mg/dL 35-149 [facility] Comment on above: TRIG ATP III CLASSIF ICATIONTRIG less than 150 mg/dL NormalTRIG 150-199 mg/dL Borderline highTRIG 200-500 mg/dL High TRIG greater than 500 mg/dL Very highStandard traceable to the Center for Disease Conrtrol and Prevention (CDC) test method. XR HIP RT 2 3V W PELVISon XR HIP RT 2 3V W PELVIS EXAMINATION: XR HIP RT 2 3V W PELVIS HISTORY: Traumatic injury COMPARISON: No relevant comparison available. FINDINGS: BOWEL GAS PATTERN: No abnormal dilation or deviation. CALCIFICATIONS: None significant. OTHER: No acute fracture or dislocation. Mild bilateral hip osteoarthropathy right greater than left with marginal osteophyte formation. Mild degenerative spondylosis of the spine IMPRESSION: No acute fracture Electronically authenticated by: LISA ANDRADE Date: 2020-03-20 07:15 Normal [facility] XR KNEE RT 4V or >on 020 XR KNEE RT 4V or > PROCEDURE: XR KNEE R T 4V or >, XR TIB_FIB RT 2V COMPARISON: None. HISTORY: Traumatic injury FINDINGS: BONES:No acute fracture or dislocation of the knee or lower leg. Moderate knee tricompartmental osteoarthropathy with marginal osteophyte relation. Moderate narrowing of the medial knee joint space. Moderate enthesopathic spurring of the calcaneus. Prominent os trigonum. SOFT TISSUES:Negative. No visible soft tissue swelling. EFFUSION:None visible. OTHER: Negative. IMPRESSION: Degenerative changes No acute fracture Electronically authenticated by: LISA ANDRADE Date: 2020-03-20 07:18 Normal [facility] Vital Signs Date Time Vital Sign Value Performing Clinician Facility 03-09-2023 18:45-0500 Body temperature 98.24 [degF] [facility] 03-09-2023 18:45-0500 Diastolic blood pressure 87 mm[Hg] [facility] 03-09-2023 18:45-0500 Heart rate 105 /min [facility] 03-09-2023 18:45-0500 Respiratory rate 18 /min [facility] 03-09-2023 18:45-0500 SaO2% (BldA) [Mass fraction] 100 % [facility] 03-09-2023 18:45-0500 Systolic blood pressure 136 mm[Hg] Davekeith Mcnair [facility] 01-27-2023 23:00-0400 Diastolic blood pressure 74 mm[Hg] DO Irene Gomes-Snyder Work Phone: [facility] 01-27-2023 23:00-0400 Heart rate 71 /min DO Irene Gomes-Snyder Work Phone: [facility] 01-27-2023 23:00-0400 Respiratory rate 18 /min DO Irene Gomes-Snyder Work Phone: [facility] 01-27-2023 23:00-0400 SaO2% (BldA) [Mass fraction] 97 % DO Irene Gomes-Snyder Work Phone: [facility] 01-27-2023 23:00-0400 Systolic blood pressure 132 mm[Hg] DO Riene Gomes-Snyder Work Phone: [facility] 01-27-2023 16:50-0400 Body height 170.18 cm DO Irene Gomes-Snyder Work Phone: [facility] 01-27-2023 16:50-0400 Body temperature 97.7 [degF] DO Irene Gomes-Snyder Work Phone: [facility] 01-27-2023 16:50-0400 Body weight 152 kg DO Irene Gomes-Snyder Work Phone: [facility] Encounters Encounter Date Encounter Type Care Provider Facility Start: 01-12-2024 ambulatory Irene Gomes-Snyder Fac ility:[facility] Start: 09-30-2023 End: 09-30-2023 ambulatory IRENE D GOMES-EMERY Not Available Start: 08-28-2023 End: 08-28-2023 Patient encounter procedure DO Irene Gomes-Snyder Work Phone: [facility] [place] Work Phone: Start: 08-28-2023 End: 08-28-2023 ambulatory DO Irene Gomes-Snyder Work Phone: [facility] Work Phone: Start: 08-24-2023 End: 08-24-2023 ambulatory IRENE D GOMES-EMERY Not Available Start: 04-20-2023 End: 04-20-2023 ambulatory IRENE D GOMES-EMERY Not Available Start: 03-09-2023 End: 03-10-2023 Emergency department patient visit Dave Mcnair Facility:[facility] Start: 03-09-2023 End: 03-09-2023 Emergency department patient visit Dave KingFelecia Mcnair [facility] Start: 01-27-2023 End: 01-27-2023 Emergency department patient visit DO Irene Gomes-Snyder Work Phone: [facility] Work Phone: Start: 06-06-2022 End: 06-06-2022 ambulatory DO Irene Gomes-Snyder Work Phone: [facility] Work Phone: Start: 06-06-2022 End: 06-06-2022 Patient encounter procedure DO Irene Gomes-Snyder Work Phone: [facility] [place] Work Phone: Start: 03-20-2020 End: 03-20-2020 Patient encounter procedure RADHA MARKER Facility: Procedures Date Procedure Procedure Detail Performing Clinician Start: 01-27-2023 [place] chest X-ray DO Sa ndra Gomes-Snyder Work Phone: section Dave Blancoraul er Plan of Treatment Date Care Activity Detail Author Patient Education Chest Pain (DC) [facility] Work Phone: Patient referral [facility] Work Phone: Payers Date Payer Category Payer Self-pay [id number] 2022 Unknown [id number] 1975 Unknown [id number] 1975 Unknown [id number] 1975 Unknown [id number] 1975 Unknown [id number] 1975 Unknown [id number] 259 1959 Unknown 1959 Unknown [id number] Unknown Mac BC/BS [id number] Unknown [id number] 31 Unknown [id number] 31 Unknown [id number] 31 Worker's Compensation Occupational Health Link [id number] Social History Date Type Detail Facility Start: 01-08-2019 End: 01-27-2023 Tobacco smoking status NHIS Never smoked tobacco (finding) [facility] Start: 1975 Sex Assigned At Female F [facility] Tobacco [facility] Comment on above: denies Tobacco smoking status No Smokin g Status Entered [facility] Sex Assigned At Female [facility] Functional Status Date Assessment Result Facility 03-09-2023 Functional Status N/A [facility] Discharge instructions 03-10-2023 Note Date & Type Note Facility 03-10-2023 Hospital Discharg e instructions Patient Education 03/09/2023 22:22:23 Contusion Contusion A contusion is a deep bruise. Contusions are the result of a blunt injury to tissues and muscle fibers under the skin. The injury causes bleeding under the skin. The skin overlying the contusion may turn blue, purple, or yellow. Minor injuries will give you a painless contusion, but more severe injuries cause contusions that may stay painful and swollen for a few weeks. Follow these instructions at home: Pay attention to any changes in your symptoms. Let your health care provider know about them. Take these actions to relieve your pain. Managing pain, stiffness, and swelling Use resting, icing, applying pressure (compression), and raising (elevating) the injured area. This is often called the RICE strategy. ?Rest the injured area. Return to your normal activities as told by your health care provider. Ask your health care provider what activities are safe for you. ?If directed, put ice on the injured area: ?Put ice in a plastic bag. ?Place a towel between your skin and the bag. ?Leave the ice on for 20 minutes, 2 3 times per day. ?If directed, apply light compression to the injured area using an elastic bandage. Make sure the bandage is not wrapped too tightly. Remove and reapply the bandage as directed by your health care provider. ?If possible, raise (elevate) the injured area above the level of your heart while you are sitting or lying down. General instructions Take nzaw-bpu-ccipkna and prescription medicines only as told by your health care provider. Keep all follow-up visits as told by your health care provider. This is important. Contact a health care provider if: Your symptoms do not improve after several days of treatment. Your symptoms get worse. You have difficulty moving the injured area. Get help right away if: You have severe pain. You have numbness in a hand or foot. Your hand or foot turns pale or cold. Summary A contusion is a deep bruise. Contusions are the result of a blunt injury to tissues and muscle fibers under the skin. It is treated with rest, ice, compression, and elevation. You may be given [id number] medicines for pain. Contact a health care provider if your symptoms do not improve, or get worse. Get help right away if you have severe pain, have numbness, or the area turns pale or cold. This information is not intended to replace advice given to you by your health care provider. Make sure you discuss any questions you have with your health care provider. Document Revised: 02/17/2022 Document Reviewed: 01/29/2022 [employer] Patient Education 2022 [employer]. Follow Up Care 03/09/2023 18:41:37 With:IRENE MCCARTY Address: [address] [place] [address], [address] [place] [address]- Business (1) When:Within 3 Day(s) [facility] Evaluation + Plan note Note Date & Type Note Facility Evaluation + Plan note No data available for this section [facility] Evaluation note Note Date & Type Note Facility Evaluation note No assessment information availa [facility] Work Phone: Hospital Discharge instructions Note Date & Type Note Facility Hospital Discharge instructions Additional Instructions Follow-up with your primary care doctor Return to ED if develop worsening symptoms or concerns [facility] Work Phone: Progress note Note Date & Type Note Facility Progress note No data available for this section [facility] Summary Purpose Family History No Family History Records Found Relationship Condition Age at Onset Recorded Date/T everardo father Diabetes mellitus Unknown Hypertension Unknown Not Specified Unknown Diabetes mellitus Unknown Advance Directives No Advanced Directives Records Found Advance Directive Response Recorded Date/ Time Advance Directives No July 08 4:10pm Advance Directive Response Recorded Date/ Time Advance Directives No July 08 018 5:10pm Chief Complaint and Reason for Visit Chief Complaint E78.2 Chief Complaint chest discomfort hot flash Chief Complaint E11.9 Additional Source Comments INFORMATION SOURCE (unrecogn ized section and content) DATE CREATED AUTHOR 04/29/2020 [facility] DATE CREATED AUTHOR AUTHOR'S ORGANIZ ATION 03/11/[address] [facility] DATE CREATED AUTHOR AUTHOR'S ORGANIZ ATION 10/04/2023 [facility] EPIC DATE CREATED AUTHOR AUTHOR'S ORGANIZ ATION 01/22/2024 [facility] Care Teams (unrecognized sec tion and content) Team Status: Inactive Member Role Status Dates Irene Mccarty , DO Primary Care Provider, Attend ing Provider Active Team Status: Active Member Role Status Dates Irene Mccarty , DO Primary Care Provider Active Team Status: Inactive Member Role Status Dates Irene Mccarty , DO Primary Care Provider Active Wesley Loza , DO Emergency Provider Active Team Status: Inactive Member Role Status Dates Irene Mccarty , DO Primary Care Pr ovider, Attending Provider Active Start: August 28, 2023 End: August 28, 2023 Goals (unrecognized section and content) Goals may be documented in a n alternate sectionGoals may be documented in an alternate section No data available for this sectionGoals may be documented in an alternate section FOR RECORDS PERTAINING TO PATIENTS WHO ARE OR HAVE BEEN ENROLLED IN A CHEMICAL DEPENDENCY/SUBSTANCEABUSE PROGRAM, SOME INFORMATION MAY BE OMITTED. This clinical summary was aggregated from multiple sources. Caution should be exercised in using it in the provision of clinical care. This summary normalizes information from multiple sources, and as a consequence, information in this document may materially change the coding, format and clinical context of patient data. In addition, data may be omitted in some cases. CLINICAL DECISIONS SHOULD BE BASED ON THE PRIMARY CLINICAL RECORDS. [employer] provides no warranty or guarantee of the accuracy or completeness of information in this document.
--- NOTE | 2024-02-08 17:54 | PM.HP ---
HPI H&P: HPI History of Present Illness Chief complaint: Nausea/Vomiting, Pyelonephritis, Sepsis Narrative: 48 y o female presented to ED for nausea, vomiting and inability to eat x 3 days. Patient also reports urinary urgency/dysuria and increased urinary frequency. She reports left sided back for 1-2 days but denies any abdominal pain. Denies diarrhea. Denies blood in stool. Patient was febrile in ED with associated diaphoresis. Work up in ED revealed acute left sided pyelonephritis and possibility of passed ureteral stone on left side. Patient denies prior hx of renal stones or UTI. After initial treatment with anti emetics, IVF and IV abx, patient was still feeling quite nauseous and unwell. She will be admitted for observation for left pyelonephritis, poorly controlled nausea/vomiting and inability to tolerate PO diet. Opioid HPI Opioid Management Most Recent Pain and Opioid Data: Last Pain Assessment 02/08/24 16:51 Last MAR Pain Assessment 02/08/24 15:31 Last ORT Total Score 1 02/08/24 16:51 02/08/24 Last ORT Risk Category Low Risk 02/08/24 16:51 02/08/24 Ur Phencyclidine Scrn Negative (NEGATIVE) 09/20/23 10:31 09/20/23 Review of Systems ROS Status of ROS 10 or more systems reviewed and unremarkable except as noted in history and below [facility] Medical History (Updated 02/08/24 @ 17:55 by Shaikh Rocky MD) Anxiety ?F41.9 - Anxiety disorder, unspecified (ICD-10) Hyperlipidemia ?E78.5 - Hyperlipidemia, unspecified (ICD-10) Hypertension ?I10 - Essential (primary) hypertension (ICD-10) Diabetes ?E11.9 - Type 2 diabetes mellitus without complications (ICD-10) Surgical History (Updated 02/08/24 @ 16:47 by Manisha Peterson) delivery delivered ?O82 - Encounter for delivery without indication (ICD-10) Family History (Updated 02/08/24 @ 16:49 by Manisha Peterson) Father Family history of diabetes mellitus Family history of hypertension Family history of myocardial infarction Mother Family history of diabetes mellitus Brother Family history of hypertension Social History (Updated 02/08/24 @ 16:50 by Manisha Peterson) Within the past year, how often did you have a drink containing alcohol: never Score interpretation: A score less than 3 is consistent with normal alcohol consumption. Smoking status: Never smoker Non-prescribed substance use: denies use Previous occupational history: [employer] Highest level of school completed/degree received: some college, no degree Little interest or pleasure in doing things: not at all Feeling down, depressed, or hopeless: not at all Feel stressed/tense/nervous/anxious/difficulty sleeping: not at all Meds Home Medications and Allergies Home Medications ?Medication ?Instructions ?Recorded ?Confirmed ?Type atorvastatin 10 mg tablet 10 mg PO DAILY 09/20/23 02/08/24 History lisinopril 5 mg tablet 5 mg PO DAILY 09/20/23 02/08/24 History metformin 500 mg tablet 500 mg PO DAILY 09/20/23 02/08/24 History buspirone 15 mg tablet 15 mg PO BID 02/08/24 02/08/24 History Allergies Allergy/AdvReac Type Severity Reaction Status Date / Time No Known Drug Allergies Allergy Verified 02/08/24 13:29 Exam Constitutional Vital Signs, click to edit/add: Last Vital Signs Temp 97.8 F 02/08/24 16:51 Pulse 98 H 02/08/24 16:51 Resp 16 02/08/24 16:51 BP 119/75 02/08/24 16:51 Pulse Ox 93 L 02/08/24 16:51 O2 Del Method Room Air 02/08/24 16:51 Documenting provider has reviewed patient's vital signs: yes Common normals: oriented x3 General appearance: cooperative, ill appearing and diaphoretic Nutritional appearance: obese Respiratory Common normals: normal respiratory effort and clear to auscultation bilaterally Effort & inspection: able to speak in complete sentences Auscultation: clear to auscultation bilaterally Cardio Common normals: regular rate, S1 normal heart sound and S2 normal heart sound Rate: regular rate Heart sounds: S1 normal and S2 normal GI Common normals: Normal to inspection, nondistended, normoactive bowel sounds present, soft to palpation, non-tender and no hepatosplenomegaly Palpation: soft and no hepatosplenomegaly Back & Pelvis General back: CVA tenderness CVA tenderness: left Extremity Common normals: no clubbing, cyanosis or edema Neuro Common normals: oriented x3, moves all extremities and no focal motor deficits Psych Common normals: mental status grossly normal, denies hallucinations, denies homicidal ideation and denies suicidal ideation Results Labs Labs: Short CBC 02/08/24 Range/Units 13:46 WBC 11.6 H (4.0-11.0) 10^3/uL Hgb 13.4 (12.0-16.0) g/dL Hct 40.1 (36.0-48.0) % Plt Count 162 (150-450) 10^3/uL BMP 02/08/24 13:46 Sodium 137 Potassium 3.7 Chloride 100 Carbon Dioxide 23.1 BUN 9.0 Creatinine 1.07 H Glucose 212 H Calcium 9.1 Liver Function 02/08/24 Range/Units 13:46 Total Bilirubin 1.6 H (0.2-1.0) mg/dL AST 27 (15-37) U/L ALT 30 (14-59) U/L Alkaline Phosphatase 98 (46-116) U/L Albumin 3.1 L (3.4-5.0) g/dL Urine 02/08/24 Range/Units 14:50 Urine Color Lt. yellow (YELLOW) Urine Clarity Clear (CLEAR) Urine pH 7.0 (5.0-9.0) Ur Specific [place] <=1.005 A (1.005-1.025) Urine Protein 100 A (NEG/TRACE) mg/dL Urine Glucose (UA) Negative (NEGATIVE) mg/dL ABG ABG results: 02/08/24 13:46 VBG pH 7.502 H VBG pCO2 30.1 L Assessment and Plan Assessment and Plan (1) Pyelonephritis: Assessment and Plan: Started on IV rocephin. F./u urine and blood cx. C/w IVF. (2) Nausea & vomiting: Assessment and Plan: Zofran as needed. IVF for dehydration. Advance diet as tolerated. Qualifiers: Vomiting type: unspecified Qualified Code(s): R11.2 - Nausea with vomiting, unspecified (3) Hypertension: Assessment and Plan: BP stable. C/w home medications. Qualifiers: Hypertension type: primary hypertension Qualified Code(s): I10 - Essential (primary) hypertension (4) Diabetes: Assessment and Plan: Hold metformin. ssi while inpatient. Qualifiers: Diabetes mellitus type: type 2 Diabetes mellitus retirement insulin use: without superintendent terminal use Diabetes mellitus complication status: without complication Qualified Code(s): E11.9 - Type 2 diabetes mellitus without complications (5) Depression: Assessment and Plan: Stable mood. Denies si/hi. c.w buspirone Qualifiers: Depression Type: major depressive disorder Major depression recurrence: recurrent Active/Remission status: in full remission Qualified Code(s): F33.42 - Major depressive disorder, recurrent, in full remission (6) Hyperlipidemia: Assessment and Plan: c/w lipitor Qualifiers: Hyperlipidemia type: unspecified Qualified Code(s): E78.5 - Hyperlipidemia, unspecified Plan C.w IVF, IV rocephin. C/w Supportive care, advance diet as tolerated.
[2024-02-08] MEDS: LACTATED RINGER'S SOLUTION 1,000 ML 125 ML IV (18:06)
[2024-02-08] MEDS: ENOXAPARIN SODIUM 60 MG/0.6 ML SYRINGE SUBQ (21:12)
[2024-02-08] MEDS: ATORVASTATIN CALCIUM 10 MG TABLET PO (21:13)
[2024-02-08] MEDS: BUSPIRONE HCL 15 MG TABLET PO (21:13)
[2024-02-08] MEDS: INSULIN ASPART 300 UNIT/3 ML PEN SUBQ (21:14)
[2024-02-08 21:19] LABS: Glucometer 158 mg/dL (74-106)
[2024-02-09] MEDS: ACETAMINOPHEN 325 MG TABLET 650 MG PO ×2 (01:29→06:15)
[2024-02-09] MEDS: LACTATED RINGER'S SOLUTION 1,000 ML 125 ML IV (01:30)
[2024-02-09 01:31] VITALS: TEMP 37.9
[2024-02-09 03:32] VITALS: BP 115/75; PULSE 99; TEMP 36.9; O2SAT 92
[2024-02-09 06:16] VITALS: TEMP 37.4
[2024-02-09 06:21] LABS: Basophils Percent Auto 0.2 % (0.2-2.0); Eosinophils Percent Auto 0.4 % (0.9-7.0); Hematocrit 38.5 % (36.0-48.0); Hemoglobin 12.6 g/dL (12.0-16.0); Immature Granulocytes Abs Auto 0.04 10^3/uL (0.00-0.03); Immature Granulocytes Pct Auto 0.5 % (0.0-0.5); Lymphocytes Absolute Auto 0.6 10^3/uL (1.2-3.8); Mean Corpuscular HGB Conc 32.7 g/dL (29.9-35.2); Mean Corpuscular Volume 82.6 fL (81.0-99.0); Mean Platelet Volume 11.2 fL (9.5-13.5); Monocytes Absolute Auto 0.9 10^3/uL (0.3-0.8); Monocytes Percent Auto 10.7 % (1.7-12.0); Neutrophils Percent Auto 81.2 % (43.0-75.0); Platelet Count 127 10^3/uL (150-450); Red Blood Count 4.66 10^6/uL (4.20-5.40); Red Cell Distribution Width 13.2 % (11.0-15.0); White Blood Count 8.6 10^3/uL (4.0-11.0)
[2024-02-09 07:05] LABS: Alanine Aminotransferase 30 U/L (14-59); Albumin Globulin Ratio 0.6; Albumin Level 2.5 g/dL (3.4-5.0); Alkaline Phosphatase 96 U/L (46-116); Anion Gap 13.7; Aspartate Amino Transferase 35 U/L (15-37); BUN Creatinine Ratio 8.6; Bilirubin Total 1.1 mg/dL (0.2-1.0); Carbon Dioxide 24.7 mmol/L (21.0-32.0); Chloride 103 mmol/L (98-107); Estimated GFR (African America >60 (>=60 mL/min/1.73m^2); Estimated GFR (Non-African Ame 56 (>=60 mL/min/1.73m^2); Glucose 163 mg/dL (74-106); Potassium 3.4 mmol/L (3.5-5.1); Sodium 138 mmol/L (136-145); Total Protein 6.5 g/dL (6.4-8.2)
[2024-02-09 07:27] VITALS: BP 114/78; PULSE 118; TEMP 36.3; O2SAT 95
--- NOTE | 2024-02-09 07:29 | ECG_ITS ---
[facility] Test Date: 2024-02-09 Pat Name: SOCORRO MONTOYA Department: Room: [facility] Gender: Female Cork Wirer: : 1975 Requested By: Order Number: [id number] Reading MD: JESSICA MILLER Measurements Intervals [place] Rate: 116 P: 33 ME: 143 QRS: 12 QRSD: 106 T: 8 QT: 310 QTc: 432 Interpretive Statements SINUS TACHYCARDIA LOW QRS VOLTAGE IN PRECORDIAL LEADS [QRS DEFLECTION < 1.0 mV IN CHEST LEADS] ABNORMAL RHYTHM ECG Compared to ECG 09/20/2023 09:54:56 Low QRS voltage now present Sinus rhythm no longer present Electronically Signed On 02-09-2024 18:00:34 EDT by JESSICA MILLER
[2024-02-09 07:42] LABS: Glucometer 215 mg/dL (74-106)
[2024-02-09] MEDS: BUSPIRONE HCL 15 MG TABLET PO (08:17)
[2024-02-09] MEDS: INSULIN ASPART 300 UNIT/3 ML PEN SUBQ (08:17)
[2024-02-09] MEDS: ENOXAPARIN SODIUM 60 MG/0.6 ML SYRINGE SUBQ (08:17)
[2024-02-09] MEDS: LISINOPRIL 5 MG TABLET PO (08:23)
--- NOTE | 2024-02-09 09:50 | P.DS_ITS ---
DS: Providers Provider Date of admission: 02/08/24 16:37 Primary care physician: KRZYSZTOF ALBRIGHT Admitting clinician: Shaikh Rocky Attending physician on admission: Shaikh Rocky Attending physician on discharge: Shaikh Rocky Discharging clinician: Shaikh Rocky Anticipated date of discharge: 02/09/24 DS: Diagnosis Discharge Diagnosis (1) Pyelonephritis: (2) Nausea & vomiting: Qualifiers: Vomiting type: unspecified Qualified Code(s): R11.2 - Nausea with vomiting, unspecified (3) Hypertension: Qualifiers: Hypertension type: primary hypertension Qualified Code(s): I10 - Essential (primary) hypertension (4) Diabetes: Qualifiers: Diabetes mellitus type: type 2 Diabetes mellitus long-term insulin use: without long-term use Diabetes mellitus complication status: without complication Qualified Code(s): E11.9 - Type 2 diabetes mellitus without complications (5) Depression: Qualifiers: Active/Remission status: in full remission Depression Type: major depressive disorder Major depression recurrence: recurrent Qualified Code(s): F33.42 - Major depressive disorder, recurrent, in full remission (6) Hyperlipidemia: Qualifiers: Hyperlipidemia type: unspecified Qualified Code(s): E78.5 - Hyperli pidemia, unspecified DS: Summary Hospital Course Hospital Course: 48 y o female presented to ED for nausea, vomiting and inability to eat x 3 days. Patient also reported urinary urgency/dysuria and increased urinary frequency. She also had left sided back for 1-2 days but denied any abdominal pain. Patient was febrile in ED with associated diaphoresis. Work up in ED revealed acute left sided pyelonephritis and possibility of passed ureteral stone on left side. Patient denies prior hx of renal stones or UTI. After initial treatment with anti emetics, IVF and IV abx, patient was still feeling quite nauseous and unwell. She was admitted admitted for observation for left pyelonephritis, poorly controlled nausea/vomiting and inability to tolerate PO diet. Patient was treated with IVF, IV rocephin and anti emetics as needed. She improved clinically over the course of admission. Patient is now tolerating PO diet. She is stil complaining of nausea and has decreased PO intake. Otherwise, feels well compared to when she came to ED. She is medically stable for discharge on oral abx. She will also be sent home with oral zofran as neeed. Patient educated on worrisome signs and symptoms including intractable nausea/vomiting or fever, that should prompt her to seek care and return to ED. Status at Discharge Functional status at discharge: independent ambulation Overall status at discharge: patient is back to baseline Time Spent with Patient Time attestation: Total time spent providing and/or coordinating discharge services: Time spent: greater than 30 minutes Exam Constitutional Vital Signs, click to edit/add: Last Vital Signs Temp 97.4 F L 02/09/24 07:27 Pulse 118 H 02/09/24 07:27 Resp 18 02/09/24 07:27 BP 114/78 02/09/24 07:27 Pulse Ox 95 02/09/24 07:27 O2 Del Method Room Air 02/09/24 07:27 Documenting provider has reviewed patient's vital signs: yes Common normals: oriented x3 General appearance: cooperative Nutritional appearance: obese Respiratory Common normals: normal respiratory effort and clear to auscultation bilaterally Effort & inspection: able to speak in complete sentences Auscultation: clear to auscultation bilaterally Cardio Common normals: regular rate, S1 normal heart sound and S2 normal heart sound Rate: regular rate Heart sounds: S1 normal and S2 normal GI Common normals: Normal to inspection, nondistended, normoactive bowel sounds present, soft to palpation, non-tender and no hepatosplenomegaly Palpation: soft and no hepatosplenomegaly Extremity Common normals: no clubbing, cyanosis or edema Neuro Common normals: oriented x3, moves all extremities and no focal motor deficits Psych Common normals: mental status grossly normal, denies hallucinations, denies homicidal ideation and denies suicidal ideation DS: Data Data Completed and Pending Labs on day of discharge: Labs from last 24 hours 02/09/24 02/09/24 02/08/24 07:36 05:38 21:14 WBC 8.6 RBC 4.66 Hgb 12.6 Hct 38.5 MCV 82.6 MCH 27.0 MCHC 32.7 RDW 13.2 Plt Count 127 L MPV 11.2 Neut % (Auto) 81.2 H Lymph % (Auto) 7.0 L Russell % (Auto) 10.7 Eos % (Auto) 0.4 L Baso % (Auto) 0.2 Neut # (Auto) 7.0 H Lymph # (Auto) 0.6 L Russell # (Auto) 0.9 H Eos # (Auto) 0.0 Baso # (Auto) 0.0 Abs Immat Gran (auto) 0.04 H Seg Neuts % (Manual) Band Neutrophils % Lymphocytes % (Manual) Monocytes % (Manual) Eosinophils % (Manual) Basophils % (Manual) Imm/Tot Granulo (auto) 0.5 Neutrophils # (Manual) Band Neutrophils # Lymphocytes # (Manual) Monocytes # (Manual) Eosinophils # (Manual) Basophils # (Manual) VBG pH VBG pCO2 Sodium 138 Potassium 3.4 L Chloride 103 Carbon Dioxide 24.7 Anion Gap 13.7 BUN 9.0 Creatinine 1.05 H Est GFR ( Amer) >60 Est GFR (Non-Af Amer) 56 L BUN/Creatinine Ratio 8.6 Glucose 163 H Lactate Calcium 9.0 Total Bilirubin 1.1 H AST 35 ALT 30 Alkaline Phosphatase 96 Total Protein 6.5 Albumin 2.5 L Globulin 4.0 Albumin/Globulin Ratio 0.6 Lipase Serum HCG, Qual Urine Color Urine Clarity Urine pH Ur Specific [place] Urine Protein Urine Glucose (UA) Urine Ketones Urine Occult Blood Urine Nitrite Urine Bilirubin Urine Urobilinogen Ur Leukocyte Esterase Urine RBC Urine WBC Ur Squamous Epith Cells Ur Transition Epith Cell Urine Crystals Urine Bacteria Urine Casts Urine Mucus Ur Culture Indicated? Influenza Type A Ag Influenza Type B Ag SARS-CoV-2 Ag (CV2AG) Streptococcus Screen POC Glucose 215 H 158 H 02/08/24 02/08/24 02/08/24 14:50 13:56 13:46 WBC 11.6 H RBC 4.96 Hgb 13.4 Hct 40.1 MCV 80.8 L MCH 27.0 MCHC 33.4 RDW 12.8 Plt Count 162 MPV 10.9 Neut % (Auto) Lymph % (Auto) Russell % (Auto) Eos % (Auto) Baso % (Auto) Neut # (Auto) Lymph # (Auto) Russell # (Auto) Eos # (Auto) Baso # (Auto) Abs Immat Gran (auto) Seg Neuts % (Manual) 84.0 H Band Neutrophils % 2.0 Lymphocytes % (Manual) 2.0 L Monocytes % (Manual) 12.0 Eosinophils % (Manual) 0.0 L Basophils % (Manual) 0.0 L Imm/Tot Granulo (auto) Neutrophils # (Manual) 9.74 H Band Neutrophils # 0.2 Lymphocytes # (Manual) 0.23 L Monocytes # (Manual) 1.39 H Eosinophils # (Manual) 0.00 Basophils # (Manual) 0.00 VBG pH 7.502 H VBG pCO2 30.1 L Sodium 137 Potassium 3.7 Chloride 100 Carbon Dioxide 23.1 Anion Gap 17.6 BUN 9.0 Creatinine 1.07 H Est GFR ( Amer) >60 Est GFR (Non-Af Amer) 55 L BUN/Creatinine Ratio 8.4 Glucose 212 H Lactate 1.9 Calcium 9.1 Total Bilirubin 1.6 H AST 27 ALT 30 Alkaline Phosphatase 98 Total Protein 7.1 Albumin 3.1 L Globulin 4.0 Albumin/Globulin Ratio 0.8 Lipase 16.0 Serum HCG, Qual Negative Urine Color Lt. yellow Urine Clarity Clear Urine pH 7.0 Ur Specific [place] <=1.005 A Urine Protein 100 A Urine Glucose (UA) Negative Urine Ketones Negative Urine Occult Blood Large A Urine Nitrite Negative Urine Bilirubin Negative Urine Urobilinogen 1.0 Ur Leukocyte Esterase Trace A Urine RBC 5-10 A Urine WBC 2-5 A Ur Squamous Epith Cells Few A Ur Transition Epith Cell Rare A Urine Crystals None seen Urine Bacteria Moderate A Urine Casts None seen Urine Mucus Trace A Ur Culture Indicated? Yes Influenza Type A Ag Influenza Type B Ag SARS-CoV-2 Ag (CV2AG) Streptococcus Screen Negative POC Glucose 02/08/24 13:35 WBC RBC Hgb Hct MCV MCH MCHC RDW Plt Count MPV Neut % (Auto) Lymph % (Auto) Russell % (Auto) Eos % (Auto) Baso % (Auto) Neut # (Auto) Lymph # (Auto) Russell # (Auto) Eos # (Auto) Baso # (Auto) Abs Immat Gran (auto) Seg Neuts % (Manual) Band Neutrophils % Lymphocytes % (Manual) Monocytes % (Manual) Eosinophils % (Manual) Basophils % (Manual) Imm/Tot Granulo (auto) Neutrophils # (Manual) Band Neutrophils # Lymphocytes # (Manual) Monocytes # (Manual) Eosinophils # (Manual) Basophils # (Manual) VBG pH VBG pCO2 Sodium Potassium Chloride Carbon Dioxide Anion Gap BUN Creatinine Est GFR ( Amer) Est GFR (Non-Af Amer) BUN/Creatinine Ratio Glucose Lactate Calcium Total Bilirubin AST ALT Alkaline Phosphatase Total Protein Albumin Globulin Albumin/Globulin Ratio Lipase Serum HCG, Qual Urine Color Urine Clarity Urine pH Ur Specific [place] Urine Protein Urine Glucose (UA) Urine Ketones Urine Occult Blood Urine Nitrite Urine Bilirubin Urine Urobilinogen Ur Leukocyte Esterase Urine RBC Urine WBC Ur Squamous Epith Cells Ur Transition Epith Cell Urine Crystals Urine Bacteria Urine Casts Urine Mucus Ur Culture Indicated? Influenza Type A Ag Negative Influenza Type B Ag Negative SARS-CoV-2 Ag (CV2AG) Negative Streptococcus Screen POC Glucose Discharge Plan Discharge Disposition: Home, Self-Care Discharge Medications: New ondansetron HCl 4 mg tablet 4 mg PO Q8H PRN (Reason: nausea and vomiting) 3 Days Qty: 9 0RF cefuroxime axetil 500 mg tablet 500 mg PO BID 7 Days Qty: 14 0RF Continued atorvastatin 10 mg tablet 10 mg PO DAILY lisinopril 5 mg tablet 5 mg PO DAILY metformin 500 mg tablet 500 mg PO DAILY buspirone 15 mg tablet 15 mg PO BID Activity: increase activity as tolerated Diet: advance to your usual diet Print Language: Sinhala Forms: Portal Instructions Follow Up Appointments: Patient has a follow up appt. scheduled for with Dr. Mccarty [phone]
--- NOTE | 2024-02-09 09:59 | CM.NOTE ---
Rounds made with Dr. Hidalgo, pt will discharge to home today. Pt has f/u appt scheduled with PCP for next . No discharge needs identified.
--- NOTE | 2024-02-10 11:27 | CM.DCFOLLOWU ---
Person spoke with: patient How are you feeling? feeling fairly well, winded at times when moving around, but states she sits down and takes some deep breaths How is your pain?none Did you understand your discharge instructions?yes Do you have any questions about your discharge instructions?no Were you given any prescriptions at discharge? yes Were you able to get your prescriptions filled?yes Do you understand how to take your medications as ordered?yes Do you have any questions about your follow up appointment and do you plan to keep your follow up appointment? no questions, reviewed follow up Is there anything else that you would like to discuss?no Questions/Comments/Concerns/Other:none
== END 2024-02-09 10:23 | disposition home or self-care (01) ==
LOC: ER 15:55 → MS 16:44
PROVIDERS: Physician Assistant; Admitting Provider Internal Medicine; Emergency Provider Emergency Medicine; PCP Internal Medicine; Visit Provider Internal Medicine
DX: N10 Acute pyelonephritis (principal); R11.2 Nausea with vomiting, unspecified; I10 Essential (primary) hypertension; E11.9 Type 2 diabetes mellitus without complications; F33.42 Major depressive disorder, recurrent, in full remission; Z79.899 Other long term (current) drug therapy; E78.5 Hyperlipidemia, unspecified; Z79.84 Long term (current) use of oral hypoglycemic drugs; Z20.822 Contact with and (suspected) exposure to COVID-19
CPT/HCPCS: 36415; 71045; 74177; 80053; 81001; 82800; 82948; 83605; 83690; 84703; 85007; 85025; 85027; 87040; 87070; 87086; 87804; 87811; 87880; 93005; 94761; 96361; 96365; 96372; 96375; 99285; G0378; J0696; J1650; J2405; Q9967